=== PATIENT | female | born 1965 | race Caucasian/White ===

== ENCOUNTER → 2016-11-10 | Outpatient (CLI) | payer BC ==
[~2016-11-10] MED LIST: ALBU6.7H IH; ALBU8.5H4 IH; AZIT250T81 PO; DOXY100C2 PO; GFN600TCR PO; GUAI600T45 PO; HYDR-3702 PO; HYDR-3708 PO; LEVO175T2 PO; LEVO750T39 PO; METH20TA PO; METH20TA3 PO; ONDAN4ODT PO; PRAM1TAB5 PO; PRCD5U PO; PRED20TA PO; PRED5TAB PO; ROSU10TA PO; ROSU20TA PO; [UNRECOGNIZED DRUG - OTHER] PO
[2016-11-10 08:41] LABS: BASOPHILS % (AUTO) 0 % (0-2); EOSINOPHILS # (AUTO) 0.9 10^3uL; EOSINOPHILS % (AUTO) 9 % (0-4); LYMPHOCYTES # (AUTO) 2.1 X10^3; MEAN CORPUSCULAR HGB CONC 33.4 g/dL (31.0-37.0); MEAN CORPUSCULAR VOLUME 94 FL (80-100); MONOCYTES # (AUTO) 0.7 X10^3; MONOCYTES % (AUTO) 7 % (3-11); NEUTROPHILS # (AUTO) 5.7 X10^3; NEUTROPHILS % (AUTO) 60 % (51-67); PLATELET COUNT 248 10^3uL (150-450); WHITE BLOOD COUNT 9.42 10^3uL (4.0-11.0)
[2016-11-10 09:00] LABS: MEAN CORPUSCULAR HEMOGLOBIN 31.3 PG (26.0-34.0)
[2016-11-10 09:22] LABS: ALBUMIN 4.6 g/dL (3.4-5.0); ANION GAP 15.2 MEQ/L (3-15); CALCULATED IONIZED CALCIUM 3.9 mg/dL (3.8-4.6)
== END ==
LOC: LAB 08:25
PROVIDERS: ATTEND Internal Medicine
DX: Z00.00 Encounter for general adult medical examination without abnormal findings (principal); E78.4 Other hyperlipidemia; E03.8 Other specified hypothyroidism; K21.9 Gastro-esophageal reflux disease without esophagitis
CPT/HCPCS: 36415; 80053; 80061; 84439; 84443; 85025

== ENCOUNTER → 2016-11-12 | Outpatient (CLI) | payer BC | LOC: LAB 11:21 | PROVIDERS: ATTEND Internal Medicine | DX: M79.89 Other specified soft tissue disorders (principal) | CPT/HCPCS: 36415; 85379 ==